=== PATIENT | female | born 1985 | race Caucasian/White ===

== ENCOUNTER 2017-10-02 16:17 | Emergency (ER) | payer OTHER ==
[2017-10-02] MEDS ORDERED: FEVERALL 650 MG PR STA (16:39)
[2017-10-02] MEDS ORDERED: Lactated Ringers 1,000 ML IV ONE ×2 (16:40→16:55)
[2017-10-02] MEDS ORDERED: Phenergan 25 MG INJ IM ONE (16:40)
--- NOTE | 2017-10-02 16:44 | ERPHSYRPT ---
- History of Present Illness Time Seen by Provider: 10/02/17 16:34 Source: patient, family (fiance) Patient Subjective Stated Complaint: vomiitng and loose stools for 2 days now with fever,headache, pt is 19 weeks , pt dx with influ a today Triage Nursing Assessment: pt walked in, resp easy, abd round and soft, no edema , mucus membranes moist Physician History: CC: influenza Hx: 32 y/o patient of Dr Baker is 19 weeks gestation. She has cough, sore throat, body aches, fever, vomiting. Normal urination. No CTX. No vaginal bleeding. She had positive flu swab today at Dr Baker office and started tamiflu and APAP but vomited it so came to ER. No diarrhea currently. Timing/Duration: yesterday, worse Severity: moderate Allergies/Adverse Reactions: No Known Drug Allergies Allergy (Verified 07/24/16 20:56) Home Medications: Alprazolam [Xanax 0.5 mg] 0.5 mg PO PRN 07/24/16 [History] Levothyroxine Sodium [Synthroid] 1 tab PO DAILY 07/24/16 [History] Hx Tetanus, Diphtheria Vaccination/Date Given: No Hx Influenza Vaccination/Date Given: No Hx Pneumococcal Vaccination/Date Given: No Immunizations Up to Date: Yes - Review of Systems Constitutional: Fever, Chills, Malaise Eyes: No Symptoms Ears, Nose, & Throat: Nose Congestion, Throat Pain Respiratory: Cough Abdominal/Gastrointestinal: Nausea, Vomiting, No Diarrhea Genitourinary Symptoms: No Dysuria Skin: No Rash Neurological: Headache All Other Systems: Reviewed and Negative - Past Medical History Pertinent Past Medical History: Yes Neurological History: No Pertinent History ENT History: No Pertinent History Cardiac History: No Pertinent History Respiratory History: No Pertinent History Endocrine Medical History: Hypoglycemia Musculoskeletal History: No Pertinent History GI Medical History: No Pertinent History History: No Pertinent History Psycho-Social History: Anxiety Female Reproductive Disorders: No Pertinent History - Past Surgical History Past Surgical History: No Neuro Surgical History: No Pertinent History Cardiac: No Pertinent History Respiratory: No Pertinent History Gastrointestinal: No Pertinent History Genitourinary: No Pertinent History Musculoskeletal: No Pertinent History Female Surgical History: No Pertinent History - Social History Smoking Status: Never smoker Exposure to second hand smoke: Yes Drug Use: none Patient Lives Alone: No - Female History Expected Date of Delivery: 02/25/18 - Nursing Vital Signs Nursing Vital Signs: Initial Vital Signs Temperature 97.9 F 10/02/17 16:28 Pulse Rate 122 H 10/02/17 16:28 Respiratory Rate 18 10/02/17 16:28 Blood Pressure 120/76 10/02/17 16:28 O2 Sat by Pulse Oximetry 98 10/02/17 16:28 Pain Scale Pain Intensity 0 - Physical Exam General Appearance: alert Eye Exam: PERRL/EOMI Ears, Nose, Throat Exam: normal ENT inspection, moist mucous membranes Neck Exam: normal inspection, non-tender, supple, No meningismus Respiratory Exam: normal breath sounds Cardiovascular Exam: regular rate/rhythm, No murmur Gastrointestinal/Abdomen Exam: soft, No tenderness, No distention, No mass, No guarding Back Exam: normal inspection Extremity Exam: normal inspection, normal range of motion Neurologic Exam: alert, oriented x 3, cooperative, sensation nml, No motor deficits Skin Exam: warm, dry, No rash SpO2 Interpretation: normal SpO2: 98 Oxygen Delivery: Room Air - Course Nursing assessment & vital signs reviewed: Yes Ordered Tests: Active Orders 24 hr Category Date Time Status Clean Catch Urine Specimen STAT Care 10/02/17 16:39 Active Heart Tones-ED STAT Care 10/02/17 16:40 Active IV Insertion STAT Care 10/02/17 16:39 Active CBC W DIFF Stat Lab 10/02/17 16:45 Completed CMP Stat Lab 10/02/17 16:45 Completed CULTURE,URINE Stat Lab 10/02/17 16:45 Received Lactic Acid Stat Lab 10/02/17 16:39 Completed Manual Differential NC Stat Lab 10/02/17 16:45 Completed UA W/ MICROSCOPIC Stat Lab 10/02/17 16:45 Completed Medication Summary Discontinued Medications Generic Name Dose Route Start Last Admin Trade Name Freq PRN Reason Stop Dose Admin Acetaminophen 975 mg 10/02/17 16:39 10/02/17 16:56 Feverall 650 Mg ME 10/02/17 16:40 1,300 mg STAT STA Administration Acetaminophen Confirm 10/02/17 16:55 Feverall 650 Mg Administered 10/02/17 16:56 Dose 650 mg .ROUTE .STK-MED ONE Acetaminophen Confirm 10/02/17 16:58 Feverall 650 Mg Administered 10/02/17 16:59 Dose 650 mg .ROUTE .STK-MED ONE Lactated Ringer's 1,000 mls @ 999 mls/hr 10/02/17 16:40 10/02/17 17:04 Lactated Ringers IV 10/02/17 17:40 999 mls/hr .Q1H1M ONE Administration Lactated Ringer's Confirm 10/02/17 16:55 Lactated Ringers Administered 10/02/17 16:56 Dose 1,000 mls @ ud IV .STK-MED ONE Promethazine HCl 25 mg 10/02/17 16:40 10/02/17 16:57 Phenergan 25 Mg Inj IM 10/02/17 16:41 25 mg STAT ONE Administration Promethazine HCl Confirm 10/02/17 16:55 Phenergan 25 Mg Inj Administered 10/02/17 16:56 Dose 25 mg .ROUTE .STK-MED ONE Lab/Rad Data: Laboratory Result Diagrams 10/02/17 16:45 10/02/17 16:45 Laboratory Results 10/02/17 10/02/17 10/02/17 Range/Units 16:45 16:45 16:45 WBC 11.8 H (4.0-10.5) K/mm3 RBC 3.52 L (4.1-5.4) M/mm3 Hgb 10.7 L (12.0-16.0) gm/dl Hct 31.9 L (35-47) % MCV 90.6 (78-100) fl MCH 30.3 (26-32) pg MCHC 33.5 (32-36) g/dl RDW 12.8 (11.5-14.0) % Plt Count 292 (150-450) K/mm3 MPV 9.8 H (6-9.5) fl Segmented Neutrophils 90 H (36.0-66.0) % Lymphocytes (Manual) 7 L (24-44) % Monocytes (Manual) 3 (0.0-12.0) % Differential Comment NORMAL Platelet Estimate NORMAL (NORMAL) Sodium 136 (136-145) mEq/L Potassium 3.5 (3.5-5.1) mEq/L Chloride 100 (98-107) mEq/L Carbon Dioxide 23.6 (21-32) mEq/L Anion Gap 15.6 H (5-15) MEQ/L BUN 6 L (9-20) mg/dL Creatinine 0.56 (0.55-1.30) mg/dl Estimated GFR > 60 ML/MIN Glucose 93 (70-110) MG/DL Lactic Acid (0.4-2.0) Calcium 8.8 (8.5-10.1) mg/dL Total Bilirubin 0.30 (0.2-1.0) mg/dL AST 20 (15-37) U/L ALT 14 (12-78) U/L Alkaline Phosphatase 69 (46-116) U/L Serum Total Protein 7.2 (6.4-8.2) gm/dL Albumin 3.0 L (3.4-5.0) g/dL Ur Collection Type VOID Urine Color YELLOW (YELLOW) Urine Appearance CLOUDY (CLEAR) Urine pH 6.0 (5-6) Ur Specific [place] 1.020 (1.005-1.025) Urine Protein 30 (Negative) Urine Ketones LARGE-80 (NEGATIVE) Urine Blood MODERATE (0-5) Adan/ul Urine Nitrite NEGATIVE (NEGATIVE) Urine Bilirubin NEGATIVE (NEGATIVE) Urine Urobilinogen NORMAL (0-1) mg/dL Ur Leukocyte Esterase MODERATE (NEGATIVE) Urine Microscopic WBC 2-5 (0-5) /HPF Ur Epithelial Cells MODERATE (FEW) /HPF Urine Bacteria FEW (NEGATIVE) /HPF Hyaline Casts Not Reportable Urine Mucus SLIGHT (NEGATIVE) /HPF Urine Culture Reflexed YES (NO) Urine Glucose NEGATIVE (NEGATIVE) mg/dL Specimen Received 10/02/17 1700 10/02/17 Range/Units 16:39 WBC (4.0-10.5) K/mm3 RBC (4.1-5.4) M/mm3 Hgb (12.0-16.0) gm/dl Hct (35-47) % MCV (78-100) fl MCH (26-32) pg MCHC (32-36) g/dl RDW (11.5-14.0) % Plt Count (150-450) K/mm3 MPV (6-9.5) fl Segmented Neutrophils (36.0-66.0) % Lymphocytes (Manual) (24-44) % Monocytes (Manual) (0.0-12.0) % Differential Comment Platelet Estimate (NORMAL) Sodium (136-145) mEq/L Potassium (3.5-5.1) mEq/L Chloride (98-107) mEq/L Carbon Dioxide (21-32) mEq/L Anion Gap (5-15) MEQ/L BUN (9-20) mg/dL Creatinine (0.55-1.30) mg/dl Estimated GFR ML/MIN Glucose (70-110) MG/DL Lactic Acid 0.7 (0.4-2.0) Calcium (8.5-10.1) mg/dL Total Bilirubin (0.2-1.0) mg/dL AST (15-37) U/L ALT (12-78) U/L Alkaline Phosphatase (46-116) U/L Serum Total Protein (6.4-8.2) gm/dL Albumin (3.4-5.0) g/dL Ur Collection Type Urine Color (YELLOW) Urine Appearance (CLEAR) Urine pH (5-6) Ur Specific [place] (1.005-1.025) Urine Protein (Negative) Urine Ketones (NEGATIVE) Urine Blood (0-5) Adan/ul Urine Nitrite (NEGATIVE) Urine Bilirubin (NEGATIVE) Urine Urobilinogen (0-1) mg/dL Ur Leukocyte Esterase (NEGATIVE) Urine Microscopic WBC (0-5) /HPF Ur Epithelial Cells (FEW) /HPF Urine Bacteria (NEGATIVE) /HPF Hyaline Casts Urine Mucus (NEGATIVE) /HPF Urine Culture Reflexed (NO) Urine Glucose (NEGATIVE) mg/dL Specimen Received - Progress Progress Note: 10/02/17 18:13 She was given IVF bolus, APAP, phenergan. She wants to go home. Will release with instr. Discussed with : Jonathan Will see patient in: office Counseled pt/family regarding: lab results, diagnosis, need for follow-up - Departure Time of Disposition: 18:14 Departure Disposition: Home Clinical Impression: Influenza, 19 weeks gestation of Condition: Stable Critical Care Time: No Referrals: DEONDRE BAKER MD [Primary Care Provider] - Instructions: -- Discomforts and Remedies, Influenza -- Adult Additional Instructions: Rx phenergan supp if needed for nausea. Tylenol as directed for fever/discomfort. Drink plenty of fluids. Call Dr Baker or return for problems or concerns. Prescriptions: Promethazine HCl 25 mg Supp [Phenergan 25 mg Supp] 25 mg RC Q8H PRN PRN # 5 supp.rect PRN Reason: Nausea/Vomiting
[2017-10-02] MEDS ORDERED: Phenergan 25 MG INJ ONE (16:55)
[2017-10-02] MEDS ORDERED: FEVERALL 650 MG ONE ×2 (16:55→16:58)
[2017-10-02 17:03] LABS: Mean Cell Volume 90.6 fl (78-100); Mean Platelet Volume 9.8 fl (6-9.5); Platelet Count 292 K/mm3 (150-450); Red Blood Count 3.52 M/mm3 (4.1-5.4); Red Cell Distribution Width 12.8 % (11.5-14.0); White Blood Count 11.8 K/mm3 (4.0-10.5)
[2017-10-02 17:13] LABS: Collection Type VOID; Leukocyte Esterase MODERATE (NEGATIVE)
[2017-10-02 17:14] LABS: Bilirubin NEGATIVE (NEGATIVE); Blood MODERATE Ery/ul (0-5); COMPLETE URINE MICROSCOPIC? YES; Glucose NEGATIVE (NEGATIVE); Mucus SLIGHT /HPF (NEGATIVE)
[2017-10-02 17:15] LABS: ADD URINE CULTURE? YES (NO); Bacteria FEW /HPF (NEGATIVE); Epithelial Cells MODERATE /HPF (FEW)
[2017-10-02 17:24] LABS: ALKALINE PHOSPHATASE 69 U/L (46-116); ANION GAP 15.6 MEQ/L (5-15); BLOOD UREA NITROGEN 6 mg/dL (9-20); CHLORIDE 100 mEq/L (98-107); Carbon Dioxide 23.6 mEq/L (21-32); Glucose 93 MG/DL (70-110); Potassium 3.5 mEq/L (3.5-5.1); SGOT/AST 20 U/L (15-37); SGPT/ALT 14 U/L (12-78); SODIUM 136 mEq/L (136-145); Total Protein 7.2 gm/dL (6.4-8.2)
[2017-10-02 17:38] LABS: Mean Corpuscular Hemoglobin 30.3 pg (26-32)
[2017-10-02 17:43] VITALS: BP 113/44; PULSE 103
[2017-10-02 17:56] LABS: Total Cells Counted 100
[2017-10-02 17:57] LABS: Platelet Estimate NORMAL (NORMAL)
[2017-10-02 18:17] VITALS: O2SAT 98
== END 2017-10-02 18:40 | disposition home or self-care (01) ==
LOC: ED 16:17
DX: O26.892 Other specified pregnancy related conditions, second trimester (principal); Z3A.19 19 weeks gestation of pregnancy; J11.1 Influenza due to unidentified influenza virus with other respiratory manifestations
CPT/HCPCS: 36000; 36415; 80053; 81000; 83605; 85025; 87086; 96360; 96372; 99284; J2550; A9270-GY

== ENCOUNTER 2018-02-18 04:57 | Inpatient (IN) | payer OTHER ==
[2018-02-18] MEDS ORDERED: Dermoplast Spray TP PRN (05:00)
[2018-02-18] MEDS ORDERED: BENADRYL 50 MG/ML IV PRN (05:00)
[2018-02-18] MEDS ORDERED: Ambien 10 MG PO PRN (05:00)
[2018-02-18] MEDS ORDERED: MORPHINE SULFATE 2 MG INJ IV PRN (05:00)
[2018-02-18] MEDS ORDERED: CLARITIN 10 MG PO PRN (05:00)
[2018-02-18] MEDS ORDERED: Nubain 10 MG/ML IV PRN (05:00)
[2018-02-18] MEDS ORDERED: Lactated Ringers 1,000 ML IV SCH (05:00)
[2018-02-18] MEDS ORDERED: Mylicon 80MG PO PRN (05:00)
[2018-02-18] MEDS ORDERED: Anucort-HC SUPPOSITORY PR PRN (05:00)
[2018-02-18] MEDS ORDERED: Phenergan 25 MG INJ IM PRN (05:00)
[2018-02-18] MEDS ORDERED: CEFAZOLIN 2 GM-D5W BAG** 2 GM/50 ML ML IV SCH (05:00)
[2018-02-18] MEDS ORDERED: Zofran 4 MG/2 ML VIAL IV PRN (05:00)
[2018-02-18] MEDS ORDERED: DEMEROL 50 MG IV PRN (05:00)
[2018-02-18] MEDS ORDERED: HOLD NARCOTIC ANALGESICS AND SEDATIVES X24 HR MC PRN (05:00)
[2018-02-18] MEDS ORDERED: Sodium Chloride 0.9% 10 ML FLUSH Syringe IJ PRN (05:00)
[2018-02-18] MEDS ORDERED: Lactated Ringers 1,000 ML IV ONE (05:00)
[2018-02-18] MEDS ORDERED: TYLENOL EXTRA STRENGTH 500 MG PO PRN (05:00)
[2018-02-18] MEDS ORDERED: Dulcolax 10 MG SUPP PR PRN (05:00)
[2018-02-18] MEDS ORDERED: Narcan 0.4 MG/ML IV PRN (05:00)
[2018-02-18] MEDS ORDERED: Pepcid 20 MG VIAL IV SCH (05:00)
[2018-02-18] MEDS ORDERED: LANSINOH 40 GM TOP PRN (05:00)
[2018-02-18] MEDS ORDERED: Reglan 10 MG/2 ML IV SCH (05:00)
[2018-02-18] MEDS ORDERED: BICITRA 30 ML CUP PO SCH (05:00)
[2018-02-18] MEDS ORDERED: CORTISONE 1% CREAM TP PRN (05:00)
[2018-02-18] MEDS ORDERED: TUCKS TP PRN (05:00)
[2018-02-18 05:35] LABS: Hematocrit 36.5 % (35-47); Hemoglobin 12.3 gm/dl (12.0-16.0); Mean Cell Volume 93.8 fl (78-100); Mean Corpuscular Hemoglobin 31.6 pg (26-32); Mean Corpuscular Hgb Concent. 33.7 g/dl (32-36); Mean Platelet Volume 10.2 fl (6-9.5); Platelet Count 299 K/mm3 (150-450); Red Blood Count 3.89 M/mm3 (4.1-5.4); Red Cell Distribution Width 13.6 % (11.5-14.0); White Blood Count 9.6 K/mm3 (4.0-10.5)
[2018-02-18 05:48] LABS: INR 1.01 (0.8-3.0)
[2018-02-18 05:50] LABS: PTT 24.9 SECONDS (25.3-37.0)
[2018-02-18 06:31] LABS: Appearance HAZY (CLEAR); Bacteria MODERATE /HPF (NEGATIVE); Bilirubin NEGATIVE (NEGATIVE); Blood 50 Ery/ul (0-5); Epithelial Cells FEW /HPF (FEW); Glucose NEGATIVE (NEGATIVE); Ketones NEGATIVE (NEGATIVE); Leukocyte Esterase 1+ (NEGATIVE); Mucus SLIGHT /HPF (NEGATIVE); Nitrite NEGATIVE (NEGATIVE); Protein,Urine Dip 30 (Negative); Specific Gravity 1.015 (1.005-1.025); Urobilinogen NORMAL mg/dL (0-1)
[2018-02-18 06:33] LABS: ABO TYPING A; Antibody Screen NEGATIVE (NEGATIVE); RH TYPING NEGATIVE
[2018-02-18] MEDS ORDERED: DEMEROL 50 MG ONE (08:18)
[2018-02-18] MEDS: Dextrose 5%-Lr IV Solution 1000 ML 1,000 ML IV SCH ×2 (08:43→17:00)
[2018-02-18 09:01] LABS: Amphetamine,Urine NEGATIVE (NEGATIVE); Benzodiazepine,Urine NEGATIVE (NEGATIVE); Cocaine,Urine NEGATIVE (NEGATIVE); Methadone,Urine NEGATIVE (NEGATIVE); Opiate,Urine NEGATIVE (NEGATIVE); PCP,Urine NEGATIVE (NEGATIVE); THC,Urine NEGATIVE (NEGATIVE)
[2018-02-18 09:02] LABS: Barbiturate,Urine NEGATIVE (NEGATIVE)
[2018-02-18] MEDS: MOTRIN 400 MG PO PRN ×2 (09:14→15:21)
[2018-02-18] MEDS: Colace 100 MG PO SCH ×2 (10:50→22:56)
[2018-02-18] MEDS: FERREX 150 PO SCH (10:52)
[2018-02-18] MEDS: PERCOCET TABLET 5/325MG PO PRN ×2 (10:54→19:34)
--- NOTE | 2018-02-18 15:47 | OP ---
SURGERY DATE/TIME: 02/18/2018 0655 PREOPERATIVE DIAGNOSES: 1) History of prior section. 2) Term intrauterine . 3) Desires permanent sterilization. POSTOPERATIVE DIAGNOSES: 1) History of prior section. 2) Term intrauterine . 3) Desires permanent sterilization. PROCEDURE: Repeat low transverse section plus bilateral tubal ligation. SURGEON: Gino Castillo M.D. ESTIMATED BLOOD LOSS: 400 cc. IV: 1600 of crystalloid. URINE OUTPUT: 200 cc clear straw-colored urine. ANESTHESIA: Spinal by Prakash Downey CRNA. SPECIMENS: Bilateral fallopian tube segments. DESCRIPTION OF PROCEDURE: After informed written consent was obtained, the patient was taken to the operating room prepped and draped in usual sterile fashion after she underwent spinal anesthesia. Adequate level of anesthesia was assessed and a low transverse skin incision was made by knife and carried down to the subcutaneous fat to the level of the fascia. The fascia was nicked on both sides of the midline and extended using curved Rodriguez scissors in horizontal plane. The superior free edge of the fascia was grasped with Lidya clamps and the underlying rectus muscles were dissected free. The same was repeated inferiorly. The peritoneal cavity was opened and a bladder flap created and reflected over the lower uterine segment. A horizontal uterine incision was made by knife and carried down to the level of the amniotic membranes which were carefully artificially ruptured. A viable female infant delivered from the vertex presentation. There was a loose nuchal cord x1 reduced at delivery. The cord was clamped and cut. The oropharynx and nares were bulb suctioned free and then the baby was handed off to the awaiting nursery team. The placenta was removed from the uterine cavity and the uterus was exteriorized. The uterine cavity was sponge curetted clean with lap sponge and then uterine incision was closed with #1 chromic in a running locked fashion with good closure and good hemostasis. The right fallopian tube was grasped with [place] and cautery was used to make a window in the mesosalpinx. The proximal and distal tube segments were ligated with chromic tie. Interceding tube segment was dissected free with Metzenbaum scissors. The free edge of the tube was then cauterized with electrocautery. The same was repeated on the left side with no complications. The posterior cul-de-sac was wiped free of blood and clot and the uterus was returned to the peritoneal cavity. Lateral gutters were wiped free of blood and clot. Again the uterine incision was inspected and noted to be hemostatic with good closure. Next, the fascia was closed with 0 Vicryl in a running fashion with good closure and good hemostasis. Subcutaneous fat was irrigated with warm, sterile saline. Any areas of bleeding were cauterized with electrocautery. Finally, the skin layer was closed with 4-0 undyed Vicryl in a running subcuticular fashion. Steri-Strips and occlusive dressing were placed over the incision and the patient was transferred to the recovery in excellent condition.
[2018-02-19] MEDS: PERCOCET TABLET 5/325MG PO PRN ×2 (00:43→05:03)
[2018-02-19] MEDS ORDERED: DEMEROL 75 MG IM PRN (05:00)
[2018-02-19 05:56] LABS: Granulocyte Absolute (ANC) 12.13 (1.4-6.9); Hematocrit 29.1 % (35-47); Hemoglobin 9.4 gm/dl (12.0-16.0); Mean Cell Volume 97.3 fl (78-100); Mean Corpuscular Hemoglobin 31.4 pg (26-32); Mean Corpuscular Hgb Concent. 32.3 g/dl (32-36); Mean Platelet Volume 10.6 fl (6-9.5); Platelet Count 255 K/mm3 (150-450); Red Blood Count 2.99 M/mm3 (4.1-5.4); Red Cell Distribution Width 13.5 % (11.5-14.0); White Blood Count 15.6 K/mm3 (4.0-10.5)
[2018-02-19 07:12] LABS: BAND 6 % (0.0-2.0); Lymphocytes 8 % (24-44); Monocyte 7 % (0.0-12.0); Neutrophils 79 % (36.0-66.0); Total Cells Counted 100
[2018-02-19 07:13] LABS: Platelet Estimate NORMAL (NORMAL); Toxic Granulation 1+
[2018-02-19] MEDS: MOTRIN 400 MG PO PRN ×2 (09:17→18:01)
[2018-02-19] MEDS: FERREX 150 PO SCH (09:18)
[2018-02-19] MEDS: Colace 100 MG PO SCH ×2 (09:18→21:04)
[2018-02-19 10:15] VITALS: O2SAT 99
[2018-02-19] MEDS: NORCO 5/325 MG PO PRN ×3 (10:53→21:04)
[2018-02-19] MEDS ORDERED: PHENYLEPHRINE HCL IV ONE (15:51)
[2018-02-19] MEDS ORDERED: Pitocin 10 UNITS/ML IV ONE (15:51)
[2018-02-19] MEDS ORDERED: Decadron 4 MG INJ IV ONE (15:51)
[2018-02-19] MEDS ORDERED: Zofran 4 MG/2 ML VIAL IV ONE (15:51)
[2018-02-19] MEDS ORDERED: Astramorph-Pf 5 MG/10 ML IV ONE (15:51)
[2018-02-19] MEDS ORDERED: Naropin 0.5% 30 ML VIAL IJ ONE (15:51)
[2018-02-20] MEDS: MOTRIN 400 MG PO PRN ×2 (00:15→08:39)
[2018-02-20] MEDS: NORCO 5/325 MG PO PRN ×2 (03:10→09:36)
[2018-02-20 03:55] VITALS: PULSE 74
[2018-02-20 10:23] VITALS: BP 138/68
--- NOTE | 2018-02-20 10:25 | PCM.DS ---
Discharge Summary Date of Admission: 02/18/18 04:57 Admitting Physician: DEONDRE BAKER Consults: Consults on Case 02/18/18 05:01 Notify Anesthesia Provider Notify Anesthesia Provider ROUTINE Notify Physician OF ADMISSION 02/18/18 05:05 Notify Physician 02/18/18 06:04 Notify Anesthesia Provider ROUTINE Primary Care Provider: DEONDRE BAKER Allergies Allergies No Known Drug Allergies Allergy (Verified 07/24/16 20:56) Hospital Summary - Hospital Course Hospital Course: patient had repeat c/s with btl on 02/18 with no complications. - Vitals & Intake/Output Vital Signs: Vital Signs Temperature 97.9 F 02/20/18 02:00 Pulse Rate 74 02/20/18 02:00 Respiratory Rate 20 02/20/18 02:00 Blood Pressure 134/76 02/20/18 02:00 O2 Sat by Pulse Oximetry 99 02/19/18 08:00 Intake & Output: Intake & Output 02/17/18 02/18/18 02/19/18 02/20/18 11:59 11:59 11:59 11:59 Intake Total 2360 1200 Output Total 1500 Balance 860 1200 Weight 76.204 kg - Lab Result Diagrams: 02/19/18 04:53 Micro Results-Entire Visit: Microbiology 02/18/18 07:17 Urine Culture - Preliminary Catherized NO GROWTH TO DATE Discharge Exam General Appearance: no apparent distress, alert Skin Exam: normal color, warm, dry Respiratory Exam: normal breath sounds, lungs clear, No respiratory distress Cardiovascular Exam: regular rate/rhythm, normal heart sounds Gastrointestinal/Abdomen Exam: soft, other (incision c/d/i, well approximated), No tenderness, No mass Extremity Exam: normal inspection, normal range of motion Final Diagnosis/Problem List - Final Discharge Diagnosis/Problem (1) delivery delivered Current Visit: Yes Status: Acute (2) Sterilization Current Visit: Yes Status: Acute - Discharge Disposition: Home, Self-Care Condition: Stable Prescriptions: New Ibuprofen 800 mg PO TID PRN #30 tablet Hydrocodone/Acetaminophen [[place] 5-325 Tablet] 1 each PO Q4-6HPRN PRN #30 tablet MDD 6 PRN Reason: Pain Instructions: ( Delivery) (DC) Follow up with: DEONDRE BAKER MD [Primary Care Provider] - 02/25/18 11:15 am (FOLLOW UP TO OB UNIT ON ThursdayFebruary FOR CHECK UP OF YOU AND . FOLLOW UP IN DR BAKER OFFICE ON ThursdayFebruary AT 11:15. ) Forms: OB Discharge Instructions
== END 2018-02-20 11:29 | disposition home or self-care (01) | DRG 767 ==
LOC: OB 04:57
PROVIDERS: ADMIT Family Medicine; ATTEND Family Medicine
PROC: 0U570ZZ Destruction of Bilateral Fallopian Tubes, Open Approach (ICD-10-PCS; principal; 2018-02-18)
DX: O34.211 Maternal care for low transverse scar from previous cesarean delivery (principal); Z37.0 Single live birth; Z3A.39 39 weeks gestation of pregnancy; Z30.2 Encounter for sterilization
CPT/HCPCS: 36415; 64488; 76942; 80307; 81000; 85025; 85027; 85610; 85730; 86850; 86900; 86901; 87086; 88302; J0690; J1100; J2175; J2274; J2370; J2405; J2590; J2795; L0625; A9270-GY

== ENCOUNTER 2018-03-09 20:35 | Emergency (ER) | payer OTHER ==
[2018-03-09 20:49] VITALS: O2SAT 99
[2018-03-09] MEDS ORDERED: MORPHINE SULFATE 2 MG INJ IV ONE (21:21)
[2018-03-09] MEDS ORDERED: Zofran 4 MG/2 ML VIAL IV ONE (21:21)
[2018-03-09] MEDS ORDERED: Zofran 4 MG/2 ML VIAL ONE (21:26)
[2018-03-09] MEDS ORDERED: MORPHINE SULFATE 2 MG INJ ONE (21:26)
--- NOTE | 2018-03-09 21:29 | ERPHSYRPT ---
- History of Present Illness Time Seen by Provider: 03/09/18 21:24 Historian: patient Exam Limitations: no limitations Patient Subjective Stated Complaint: Pt arrives to ER with c/o mid-umbillical pain down to incision site. Also c/o headache and nausea without vomiting. Denies fever or any other complications. Denies hematuria, vaginal bleeding, dysuria, discharge or any other sx. Pain started 2-3 days ago. Pt is 3 weeks post- Triage Nursing Assessment: Pt does not appear to be in any distress at this time with respirations easy even regular and unlabored. Pt abdomen is tender and distended assumably d/t recent . Physician History: Patient is status post 3 weeks , who presents with lower abdominal pain. Patient gave to a healthy baby girl at that time, who was at full term. Patient states that she also had and bilateral tubal ligation at that time. Patient notes the pain has been constant to mid lower abdominal area, described pain as sharp/burning, localized, with worsening exacerbation especially over the last 2-3 days. Patient also has nausea and dizziness, but denies vaginal bleeding/discharge, vomiting, diarrhea, fever, chills, back pain or urinary symptoms. Patient notes that her pain at its worse was a 9/10 and now is 6/10. Patient has taken Vicodin for pain with some relief. Patient denies any recent cough, fever, shortness of breath, sore throat or nasal congestion/rhinorrhea. Patient was to follow up with her [employer] tomorrow in the office Timing/Duration: week(s) (3 weeks), intermittent Activities at Onset: none Quality: burning, sharpness Abdominal Pain Onset Location: suprapubic Pain Radiation: no radiation Severity of Pain-Max: severe Severity of Pain-Current: moderate Modifying Factors: Improves With: analgesics (improves), movement (worsens) Associated Symptoms: nausea, other (dizziness), No back, No chest pain, No diaphoresis, No fever/chills, No heartburn, No loss of appetite, No shortness of breath, No syncope, No vomiting, No weakness Previous symptoms: no prior history (what) Allergies/Adverse Reactions: No Known Drug Allergies Allergy (Verified 07/24/16 20:56) Home Medications: Alprazolam 0.5 mg [xanAX 0.5 MG] 0.5 mg PO Q8H PRN PRN 03/09/18 [History] Hx Tetanus, Diphtheria Vaccination/Date Given: Yes Hx Influenza Vaccination/Date Given: No Hx Pneumococcal Vaccination/Date Given: No Immunizations Up to Date: Yes - Review of Systems Constitutional: No Fever, No Chills, No Weakness Eyes: No Symptoms Ears, Nose, & Throat: No Symptoms Respiratory: No Symptoms, No Cough, No Dyspnea Cardiac: No Symptoms, No Chest Pain, No Edema, No Syncope Abdominal/Gastrointestinal: Nausea, No Abdominal Pain, No Vomiting, No Diarrhea Genitourinary Symptoms: No Dysuria, No Frequency, No Hematuria, No Urgency, No Vaginal Bleeding, No Vaginal Discharge Musculoskeletal: No Symptoms, No Back Pain, No Neck Pain Skin: No Symptoms, No Rash Neurological: No Dizziness, No Focal Weakness, No Sensory Changes Psychological: No Symptoms Endocrine: No Symptoms All Other Systems: Reviewed and Negative - Past Medical History Pertinent Past Medical History: Yes Neurological History: No Pertinent History ENT History: No Pertinent History Cardiac History: No Pertinent History Respiratory History: No Pertinent History Endocrine Medical History: Hypoglycemia Musculoskeletal History: No Pertinent History GI Medical History: No Pertinent History History: No Pertinent History Psycho-Social History: Anxiety Female Reproductive Disorders: No Pertinent History - Past Surgical History Past Surgical History: Yes Neuro Surgical History: No Pertinent History Cardiac: No Pertinent History Respiratory: No Pertinent History Gastrointestinal: No Pertinent History Genitourinary: No Pertinent History Musculoskeletal: No Pertinent History Female Surgical History: Section - Social History Smoking Status: Never smoker Exposure to second hand smoke: No Drug Use: none Patient Lives Alone: No - Female History Hx Last Menstrual Period: post- Hx Now: No - Nursing Vital Signs Nursing Vital Signs: Initial Vital Signs Temperature 98.2 F 03/09/18 20:41 Pulse Rate 71 03/09/18 20:41 Respiratory Rate 18 03/09/18 20:41 O2 Sat by Pulse Oximetry 99 03/09/18 20:41 Pain Scale Pain Intensity 6 - Physical Exam General Appearance: no apparent distress, alert Eye Exam: PERRL/EOMI, eyes nml inspection Ears, Nose, Throat Exam: normal ENT inspection, pharynx normal, moist mucous membranes Neck Exam: normal inspection, non-tender, supple, full range of motion Respiratory Exam: normal breath sounds, lungs clear, No respiratory distress Cardiovascular Exam: regular rate/rhythm, normal heart sounds Gastrointestinal/Abdomen Exam: soft, tenderness (suprapubic area), other (C- section wound healing well without any erythema, swelling, pain to palp), No distention, No mass, No guarding Rectal Exam: deferred Back Exam: normal inspection, normal range of motion, No CVA tenderness, No vertebral tenderness Extremity Exam: normal inspection, normal range of motion, pelvis stable Neurologic Exam: alert, oriented x 3, cooperative, normal mood/affect, nml cerebellar function, sensation nml, No motor deficits Skin Exam: normal color, warm, dry SpO2: 99 Oxygen Delivery: Room Air - Course Nursing assessment & vital signs reviewed: Yes Ordered Tests: Active Orders 24 hr Category Date Time Status IV Insertion STAT Care 03/09/18 21:21 Active Pelvic Exam Assist STAT Care 03/09/18 21:21 Active BMP Stat Lab 03/09/18 21:28 Completed CBC W DIFF Stat Lab 03/09/18 21:28 Completed CULTURE,URINE Stat Lab 03/09/18 21:28 Received UA W/ MICROSCOPIC Stat Lab 03/09/18 21:28 Completed Medication Summary Discontinued Medications Generic Name Dose Route Start Last Admin Trade Name Freq PRN Reason Stop Dose Admin Morphine Sulfate 2 mg 03/09/18 21:21 03/09/18 21:27 Morphine Sulfate 2 Mg Inj IV 03/09/18 21:22 2 mg STAT ONE Administration Morphine Sulfate Confirm 03/09/18 21:26 Morphine Sulfate 2 Mg Inj Administered 03/09/18 21:27 Dose 2 mg .ROUTE .STK-MED ONE Ondansetron HCl 4 mg 03/09/18 21:21 03/09/18 21:27 Zofran 4 Mg/2 Ml Vial IV 03/09/18 21:22 4 mg STAT ONE Administration Ondansetron HCl Confirm 03/09/18 21:26 Zofran 4 Mg/2 Ml Vial Administered 03/09/18 21:27 Dose 4 mg .ROUTE .STK-MED ONE Lab/Rad Data: Laboratory Result Diagrams 03/09/18 21:28 03/09/18 21:28 Laboratory Results 03/09/18 03/09/18 03/09/18 Range/Units 21:28 21:28 21:28 WBC 7.2 (4.0-10.5) K/mm3 RBC 4.40 (4.1-5.4) M/mm3 Hgb 13.7 (12.0-16.0) gm/dl Hct 41.4 (35-47) % MCV 94.1 (78-100) fl MCH 31.1 (26-32) pg MCHC 33.1 (32-36) g/dl RDW 12.3 (11.5-14.0) % Plt Count 475 H (150-450) K/mm3 MPV 9.7 H (6-9.5) fl Gran % 58.0 (36.0-66.0) % Eos # (Auto) 0.06 (0-0.5) Absolute Lymphs (auto) 2.39 (1.0-4.6) Absolute Monos (auto) 0.54 (0.0-1.3) Lymphocytes % 33.3 (24.0-44.0) % Monocytes % 7.5 (0.0-12.0) % Eosinophils % 0.8 (0.00-5.0) % Basophils % 0.4 (0.0-0.4) % Absolute Granulocytes 4.16 (1.4-6.9) Basophils # 0.03 (0-0.4) Sodium 142 (137-145) mmol/L Potassium 4.3 (3.5-5.1) mmol/L Chloride 101 (98-107) mmol/L Carbon Dioxide 28 (22-30) mmol/L Anion Gap 17.0 H (5-15) MEQ/L BUN 12 (7-17) mg/dL Creatinine 0.66 (0.52-1.04) mg/dL Estimated GFR > 60.0 ML/MIN Glucose 100 (74-106) mg/dL Calcium 10.1 (8.4-10.2) mg/dL Ur Collection Type VOID Urine Color YELLOW (YELLOW) Urine Appearance CLEAR (CLEAR) Urine pH 5.0 (5-6) Ur Specific [place] 1.025 (1.005-1.025) Urine Protein TRACE (Negative) Urine Ketones NEGATIVE (NEGATIVE) Urine Blood 250 (0-5) Adan/ul Urine Nitrite NEGATIVE (NEGATIVE) Urine Bilirubin NEGATIVE (NEGATIVE) Urine Urobilinogen NORMAL (0-1) mg/dL Ur Leukocyte Esterase TRACE (NEGATIVE) Urine Microscopic RBC 5-10 (0-2) /HPF Urine Microscopic WBC 5-10 (0-5) /HPF Ur Epithelial Cells MODERATE (FEW) /HPF Urine Bacteria FEW (NEGATIVE) /HPF Urine Mucus MODERATE (NEGATIVE) /HPF Urine Culture Reflexed YES (NO) Urine Glucose NEGATIVE (NEGATIVE) mg/dL Specimen Received 03/09/18 9060 - Progress Progress: improved Progress Note: 03/09/18 21:32 Pt. given Morphine/Zofran for pain Discussed with Dr.: Juarez (Notified about pt. Agreed can be seen as out patient) - Departure Time of Disposition: 22:24 Departure Disposition: Home Clinical Impression: Abdominal pain Condition: Stable Critical Care Time: No Referrals: DEONDRE BAKER MD [Primary Care Provider] - Additional Instructions: Follow-upwith Dr. Baker tomorrow as scheduled. Return for worse abdominal pain, vomiting, dizziness, headaches, weakness or any problems
[2018-03-09 21:32] LABS: BASOPHIL % 0.4 % (0.0-0.4); Basophil (Absolute #) 0.03 (0-0.4); Eosinophil % 0.8 % (0.00-5.0); Eosinophil (Absolute #) 0.06 (0-0.5); Granulocyte Absolute (ANC) 4.16 (1.4-6.9); Hematocrit 41.4 % (35-47); Hemoglobin 13.7 gm/dl (12.0-16.0); Lymphocyte (Absolute #) 2.39 (1.0-4.6); Lymphocytes % 33.3 % (24.0-44.0); Mean Cell Volume 94.1 fl (78-100); Mean Corpuscular Hemoglobin 31.1 pg (26-32); Mean Corpuscular Hgb Concent. 33.1 g/dl (32-36); Mean Platelet Volume 9.7 fl (6-9.5); Monocyte (Absolute #) 0.54 (0.0-1.3); Monocytes % 7.5 % (0.0-12.0); Platelet Count 475 K/mm3 (150-450); Red Cell Distribution Width 12.3 % (11.5-14.0); White Blood Count 7.2 K/mm3 (4.0-10.5)
[2018-03-09 21:36] LABS: BLOOD UREA NITROGEN 12 mg/dL (7-17); CHLORIDE 101 mmol/L (98-107); Calcium 10.1 mg/dL (8.4-10.2); Carbon Dioxide 28 mmol/L (22-30); Creatinine 1 0.66 mg/dL (0.52-1.04); Glucose 100 mg/dL (74-106); Potassium 4.3 mmol/L (3.5-5.1); SODIUM 142 mmol/L (137-145)
[2018-03-09 21:45] LABS: Appearance CLEAR (CLEAR); Specific Gravity 1.025 (1.005-1.025)
[2018-03-09 21:46] LABS: Bacteria FEW /HPF (NEGATIVE); Bilirubin NEGATIVE (NEGATIVE); Blood 250 Ery/ul (0-5); Epithelial Cells MODERATE /HPF (FEW); Glucose NEGATIVE (NEGATIVE); Ketones NEGATIVE (NEGATIVE); Leukocyte Esterase TRACE (NEGATIVE); Mucus MODERATE /HPF (NEGATIVE); Nitrite NEGATIVE (NEGATIVE); Protein,Urine Dip TRACE (Negative); Urobilinogen NORMAL mg/dL (0-1)
[2018-03-09 22:27] VITALS: BP 149/97; PULSE 74
== END 2018-03-09 22:41 | disposition home or self-care (01) ==
LOC: ED 20:35
DX: O90.89 Other complications of the puerperium, not elsewhere classified (principal); R10.9 Unspecified abdominal pain; R42 Dizziness and giddiness; R11.0 Nausea
CPT/HCPCS: 36000; 36415; 80048; 81000; 85025; 87086; 96374; 96375; 99284; J2270; J2405